=== PATIENT | female | born 1970 | race Caucasian/White ===

== ENCOUNTER 2019-04-07 06:32 | Day surgery (SDC) | payer BC ==
[2019-04-03 13:13] VITALS: BMI 34.5
[2019-04-07] MEDS ORDERED: MIDAZOLAM HCL 2 MG/2 ML SINGLE DOSE VIAL ONE ×2 (07:13→08:16)
[2019-04-07] MEDS ORDERED: SUCCINYLCHOLINE CHLORIDE 200 MG/10 ML SYRINGE ONE (07:13)
[2019-04-07] MEDS ORDERED: PROPOFOL 20 ML ONE ×5 (07:13→08:52)
[2019-04-07] MEDS ORDERED: BENZOIN TINCTURE SWABSTICK TP ONE (07:27)
[2019-04-07] MEDS ORDERED: ROPIVACAINE HCL 0.5% 30ML VIAL ONE (08:16)
[2019-04-07] MEDS ORDERED: ceFAZolin SODIUM 1 GM VIAL ONE (09:09)
[2019-04-07] MEDS ORDERED: ONDANSETRON 4 MG/2 ML VIAL ONE (09:09)
[2019-04-07] MEDS ORDERED: TRANEXAMIC ACID 1000 MG/10 ML VIAL ONE (09:45)
--- NOTE | 2019-04-07 10:58 | PN ---
Progress Note (short form) - Note Progress Note: 49F s/p LEFT shoulder open Quintin procedure, Neer Decompression, & rotator cuff repair POD #0. -Pain control: Vicodin, Duexis. -Incentive spirometry. -No chemical DVT PPx. -LUE sling. -No LEFT shoulder ROM. -Daily LEFT elbow, wrist & hand ROM. -Keep dressing clean & dry. -f/u in [facility] on 04/13/2019; call for appointment; . Vivek Weaver MD (Orthopaedic Surgery).
--- NOTE | 2019-04-07 11:01 | OP ---
Operative Note - Note: Operative Date: 04/07/19 Pre-Operative Diagnosis: Left shoulder impingement syndrome w/rotator cuff derangement Operation: Left shoulder Neer decompression, Quintin procedure, rotator cuff repair Post-Operative Diagnosis: Same as Pre-op Surgeon: Vivek Weaver Nurse Educator: Waqar Weaver Anesthesiologist/[employer] LOADER: Izaiah Otero Anesthesia: Local Estimated Blood Loss (mls): 25 Fluid Volume Replaced (mls): 500 (Crystalloid) Operative Report Dictated: Yes
[2019-04-07] MEDS ORDERED: oxyCODONE HCL 5 MG TABLET PO PRN (11:09)
[2019-04-07] MEDS ORDERED: ONDANSETRON 4 MG/2 ML VIAL IVPUSH PRN (11:09)
[2019-04-07] MEDS ORDERED: LACTATED RINGERS SOLUTION 1,000 ML IV SCH (11:15)
--- NOTE | 2019-04-07 12:18 | OP ---
Date of Operation: 04/07/2019 Surgeon: Vivek Weaver MD Safety Engineer: Waqar Weaver MD Pre-Operative Diagnosis: Left shoulder: 1. Impingement syndrome. 2. Rotator cuff tear. Post-Operative Diagnosis: Left shoulder: 1. Impingement syndrome. 2. Rotator cuff tear. Surgical Procedure: Left shoulder open: 1. Quintin procedure (distal clavicle excision); (17503). 2. Neer decompression (undercutting acromioplasty and coraco-acromial ligament release); (95859). 3. Primary rotator cuff repair; (78481). Findings: Partial-thickness bursal-sided supraspinatus tear. Anesthesia: Regional (interscalene block), sedation. Position: Beach chair. Incision: Oblique. Estimated Blood Loss: 25cc. Intravenous Fluid: 500cc crystalloid. Specimens: Excision arthroplasty left AC joint. Drains: None. Complications: None. Urine output: None. Bacteriology: None. Transfusions: None. Closure: #1 Vicryl. 3-0 Biosyn. Indications: The patient is a 49 year old female who was indicated for an open left shoulder distal claviculectomy (Quintin procedure), coraco-acromial ligament release & Acromioplasty (Neer Decompression), and rotator cuff repair in order to ameliorate the symptoms associated with shoulder impingement syndrome and associated rotator cuff pathology. The patient was identified in the holding area by her armband. A long discussion was held with the patient (in the presence of her family) regarding the risks, benefits and alternatives of the above-named procedure. Risks include but are not limited to: pain, bleeding, infection, damage to surrounding structures (including nerves, blood vessels, skin, ligaments, tendons and bone), reflex sympathetic dystrophy (RSD), wound complications, failure of repair, need for further surgery, blood clots, myocardial infarction , pulmonary embolism, anesthesia complications, compartment syndrome, limb loss , limp, loss of function, cerebrovascular event, and . Benefits as mentioned above. Alternatives include no surgery. All questions were answered. The patient and her family understood and agreed to the procedure. Informed consent was obtained, witnessed and verified. The patients correct operative limb - the left upper extremity - was marked, and the anesthesia team administered an ipsilateral interscalene nerve block. The patient was then taken to the operating room after being seen by the anesthesia and nursing staff. Procedure: The patient was brought into the operating room, placed supine on the OR table and secured with a safety strap. Consent and the operative site was again verified with the patient and nursing and anaesthesia staff. Anaesthesia & antibiotics were then administered without complication. A time-out was done led by , the attending surgeon. The patient was placed in a beach chair position, with all bony prominences well padded. The operative limb was prepped in standard sterile fashion using betadine prep & scrub, wiped off with alcohol, DuraPrep then applied, and then free draped. A time-out was repeated, and the case began. An incision was made in the lines of Lora from the coracoid process to the midbody of the acromion. The deltoid was identified and protected. Subcutaneous dissection was carried with electrocautery down to the level of the distal clavicle. With the distal clavicle exposed, sharp Hohmann retractors were placed around the inferior aspects of the anterior and posterior surfaces of the distal clavicle to elevate it. The acromioclavicular (AC) joint was clearly identified and the AC ligament was incised using a 15-blade. The distal 1cm of the clavicle was marked for excision. An oscillating saw was used to perform a distal clavicular osteotomy. A beveled angular cut was made to avoid leaving a sharp inferior corner to impinge on the rotator cuff below. The excision arthroplasty of the distal clavicle was completed and excised from its capsular attachments using a 15-blade. The soft tissues of the joint were saved for later closure. Throughout the case, hemostasis was assured using either monopolar or bipolar electrocautery. Next, the deltoid was elevated using an [employer] retractor, revealing the coraco-acromial (CA) ligament below. The CA ligament was incised longitudinally using a fresh 15-blade. The CA ligament was then fully released proximally and distally using Metzenbaum scissors. With the CA ligament fully decompressed, the subacromial space became accessible. This space was extremely tight. The AC joint capsule was neatly dissected to expose the distal acromion. A blunt Hohmann retractor was placed on the undersurface of the acromion, levering the humeral head down, and protecting the underlying structures. Next, the oscillating saw was used to osteotomize the undersurface of the acromion with a beveled cut. A straight 1/2" osteotome was used to complete the cut and to free the excised segment of bone. The osteotomized acromioplasty bone fragment was then removed using a rongeur with a 15-blade to release any soft tissue attachments. Next, with finger palpation, an entire finger was delivered into the sub- acromial space and bursal adhesions were released using manual finger debridement. The shoulder was then taken through a full range of motion were a partial thickness, bursal-sided tear of the supraspinatus tendon was visualized. A single #1 vicryl suture was used in simple interrupted fashion to bridge and repair the rotator cuff derangement. The wound was copiously irrigated throughout the case using normal saline solution. Hemostasis was assured and the wound was closed primarily using #1 Vicryl sutures. The skin was closed using a 3-0 Biosyn subcuticular suture. A sterile, compressive dressing was applied. The sponge and needle counts were correct at the end of the case and I, the attending surgeon, was present and scrubbed throughout the case. The patient was then transferred to a hospital stretcher and to the recovery room in stable condition, having tolerated the procedure well. A sling was applied at the end of the case. MD ANA Knowles/[id number] MTDD
[2019-04-07 12:52] VITALS: TEMP 97.7
[2019-04-07 12:56] VITALS: BP 117/68; PULSE 80
== END 2019-04-07 12:40 | disposition home or self-care (01) ==
LOC: FASU 06:32
PROVIDERS: ATTEND Orthopaedic Surgery Adult Reconstructive Orthopaedic Surgery
PROC: 0MN20ZZ Release Left Shoulder Bursa and Ligament, Open Approach (ICD-10-PCS; 2019-04-07)
PROC: 0LQ20ZZ Repair Left Shoulder Tendon, Open Approach (ICD-10-PCS; 2019-04-07)
PROC: 0PBB0ZZ Excision of Left Clavicle, Open Approach (ICD-10-PCS; principal; 2019-04-07 09:32)
DX: M75.122 Complete rotator cuff tear or rupture of left shoulder, not specified as traumatic (principal); M75.42 Impingement syndrome of left shoulder
CPT/HCPCS: 82962; 94760

== ENCOUNTER → 2022-09-23 | Day surgery (SDC) | payer BC, OTHER ==
[2022-09-21 16:55] VITALS: BMI 36.6
[2022-09-23 09:02] VITALS: BP 140/87; PULSE 94; RESP 18; TEMP 98.3
== END | disposition home or self-care (01) ==
LOC: FASU 08:19
PROVIDERS: ATTEND Orthopaedic Surgery Adult Reconstructive Orthopaedic Surgery
PROC: 0SRB0JZ Replacement of Left Hip Joint with Synthetic Substitute, Open Approach (ICD-10-PCS; principal; 2022-09-23)
DX: Z53.09 Procedure and treatment not carried out because of other contraindication (principal); M16.12 Unilateral primary osteoarthritis, left hip
CPT/HCPCS: 82962

== ENCOUNTER 2022-11-25 08:43 | Day surgery (SDC) | payer BC, OTHER ==
[2022-11-20 13:52] VITALS: BMI 36.0
[2022-11-25] MEDS ORDERED: PROPOFOL 100 ML ONE (12:20)
[2022-11-25] MEDS ORDERED: MIDAZOLAM HCL 2 MG/2 ML SINGLE DOSE VIAL ONE ×2 (12:21→15:19)
[2022-11-25] MEDS ORDERED: BUPIVACAINE HCL/PF 0.5% (5MG/ML) 10 ML VIAL ONE (12:34)
[2022-11-25] MEDS ORDERED: ROPIVACAINE HCL 0.5% 30ML VIAL ONE (12:34)
[2022-11-25] MEDS ORDERED: ONDANSETRON 4 MG/2 ML VIAL IVPUSH PRN ×2 (13:31→18:40)
[2022-11-25] MEDS ORDERED: ceFAZolin SODIUM 1 GM VIAL ONE (15:28)
[2022-11-25] MEDS ORDERED: TRANEXAMIC ACID 1000 MG/10 ML VIAL ONE ×2 (15:28→16:18)
[2022-11-25] MEDS ORDERED: DEXAMETHASONE SOD PHOSPHATE 4 MG/1 ML VIAL ONE (15:28)
[2022-11-25] MEDS ORDERED: ONDANSETRON 4 MG/2 ML VIAL ONE (15:28)
[2022-11-25] MEDS ORDERED: VANCOMYCIN 1,000 MG VIAL (RESTRICTED TO ID ONLY) ONE (15:35)
[2022-11-25] MEDS ORDERED: ACETAMINOPHEN 1000 MG/100 ML BAG IVPB PRN (17:36)
[2022-11-25] MEDS ORDERED: ACETAMINOPHEN INJECTION 100 ML IVPB ONE (18:07)
[2022-11-25] MEDS ORDERED: oxyCODONE HCL 5 MG TABLET PO PRN (18:35)
[2022-11-25] MEDS ORDERED: MAGNESIUM HYDROX 2400MG/30ML ORAL SUSPENSION 30 ML CUP PO PRN (18:40)
[2022-11-25] MEDS ORDERED: MAG HYDROX/AL HYDROX/SIMETH 30 ML UNIT-DOSE CUP PO PRN (18:40)
[2022-11-25] MEDS: ACETAMINOPHEN 1000 MG/100 ML BAG IVPB SCH ×3 (18:42→23:49)
[2022-11-25] MEDS ORDERED: LACTATED RINGERS SOLUTION 1,000 ML IV SCH (18:45)
[2022-11-25] MEDS ORDERED: ALBUTEROL SO4 0.083% IH SOL 2.5 MG/3 ML VIAL.NEB. NEB ONE ×2 (18:58→19:06)
[2022-11-25] MEDS: oxyCODONE HCL 5 MG TABLET PO PRN ×2 (20:32→23:35)
[2022-11-25] MEDS: LACTATED RINGERS SOLUTION 1,000 ML IV SCH (20:34)
[2022-11-25] MEDS: CEFAZOLIN SODIUM 2 GM in DEXTROSE 5%-WATER 100 ML IVPB SCH (22:01)
[2022-11-25] MEDS: CELECOXIB 200 MG CAPSULE PO SCH (22:02)
[2022-11-25] MEDS: INSULIN (LEVEMIR) 100 UNITS/ML UNITS SQ SCH (22:02)
[2022-11-25] MEDS: ATORVASTATIN CA 20 MG TABLET (FP) PO SCH (22:02)
[2022-11-25] MEDS: oxyCODONE HCL 10 MG SUSTAINED ACTING TABLET PO SCH (22:03)
[2022-11-25] MEDS: LOSARTAN POTASSIUM 50 MG TABLET PO SCH (22:03)
[2022-11-25] MEDS: SENNOSIDES/DOCUSATE COMBO (SENNA PLUS) TABLET (UD) PO SCH (22:04)
[2022-11-26] MEDS: oxyCODONE HCL 5 MG TABLET PO PRN ×3 (03:22→17:56)
[2022-11-26] MEDS: CEFAZOLIN SODIUM 2 GM in DEXTROSE 5%-WATER 100 ML IVPB SCH ×2 (03:22→09:11)
[2022-11-26] MEDS: ACETAMINOPHEN 1000 MG/100 ML BAG IVPB SCH ×2 (06:28→12:55)
[2022-11-26 08:59] LABS: HEMATOCRIT 31.6 % (32.4-45.2); HEMOGLOBIN 10.5 G/dL (10.7-15.3); MCH 29.1 pg (25.7-33.7); MCHC 33.1 g/dl (32.0-36.0); MEAN PLT VOLUME 10.4 fl (7.5-11.1); RBC 3.59 10^6/uL (3.60-5.2); WHITE BLOOD COUNT 9.9 10^3/uL (4.0-10.8)
[2022-11-26 09:07] LABS: BLOOD UREA NITROGEN 15.4 mg/dl (7-18); CALCIUM 8.8 mg/dl (8.5-10.1); CREATININE 0.6 mg/dl (0.6-1.3); POTASSIUM 4.3 mmol/L (3.5-5.1)
[2022-11-26] MEDS: ESCITALOPRAM OXALATE 20 MG TABLET PO SCH (09:12)
[2022-11-26] MEDS: SENNOSIDES/DOCUSATE COMBO (SENNA PLUS) TABLET (UD) PO SCH ×2 (09:12→21:14)
[2022-11-26] MEDS: PANTOPRAZOLE 40 MG TABLET PO SCH (09:12)
[2022-11-26] MEDS: CELECOXIB 200 MG CAPSULE PO SCH ×2 (09:12→21:14)
[2022-11-26] MEDS: LOSARTAN POTASSIUM 50 MG TABLET PO SCH ×2 (09:13→21:24)
[2022-11-26] MEDS ORDERED: PATIENT'S OWN MEDICATION (NON-FORMULARY) (Dapagliflozin Propanediol 10 MG Tablet) PO SCH (10:45)
[2022-11-26] MEDS: oxyCODONE HCL 10 MG SUSTAINED ACTING TABLET PO SCH ×2 (11:18→21:16)
[2022-11-26] MEDS: sitaGLIPtin PHOSPHATE 50 MG TABLET PO SCH (11:19)
[2022-11-26] MEDS: LACTATED RINGERS SOLUTION 1,000 ML IV SCH (14:29)
[2022-11-26] MEDS: ATORVASTATIN CA 20 MG TABLET (FP) PO SCH (21:14)
[2022-11-26] MEDS: INSULIN (LEVEMIR) 100 UNITS/ML UNITS SQ SCH (21:14)
[2022-11-27] MEDS: sitaGLIPtin PHOSPHATE 50 MG TABLET PO SCH (06:35)
[2022-11-27 07:27] LABS: HEMATOCRIT 28.9 % (32.4-45.2); HEMOGLOBIN 9.4 G/dL (10.7-15.3); MCHC 32.7 g/dl (32.0-36.0); MEAN CELL VOLUME 88.5 fl (80-96); MEAN PLT VOLUME 9.4 fl (7.5-11.1); PLATELET COUNT 221.3 10^3/uL (134-434); RBC 3.26 10^6/uL (3.60-5.2); RDW 14.4 % (11.6-15.6); WHITE BLOOD COUNT 8.7 10^3/uL (4.0-10.8)
[2022-11-27] MEDS ORDERED: ACETAMINOPHEN 1000 MG/100 ML BAG IVPB PRN (08:54)
[2022-11-27] MEDS: SENNOSIDES/DOCUSATE COMBO (SENNA PLUS) TABLET (UD) PO SCH (09:24)
[2022-11-27] MEDS: PANTOPRAZOLE 40 MG TABLET PO SCH (09:24)
[2022-11-27] MEDS: CELECOXIB 200 MG CAPSULE PO SCH (09:24)
[2022-11-27] MEDS: ESCITALOPRAM OXALATE 20 MG TABLET PO SCH (09:24)
[2022-11-27 10:24] VITALS: BP 92/43; PULSE 86; RESP 18; TEMP 99.2
[2022-11-27] MEDS: oxyCODONE HCL 10 MG SUSTAINED ACTING TABLET PO SCH (10:32)
[2022-11-27] MEDS: LOSARTAN POTASSIUM 50 MG TABLET PO SCH (10:32)
== END 2022-11-27 11:47 | disposition home or self-care (01) ==
LOC: FASU 08:43 → FASUSAT 08:43 → FM/S 19:38 → FASUSAT 11-27 11:47
PROVIDERS: ATTEND Orthopaedic Surgery Adult Reconstructive Orthopaedic Surgery
PROC: 0SRB0JA Replacement of Left Hip Joint with Synthetic Substitute, Uncemented, Open Approach (ICD-10-PCS; principal; 2022-11-25 15:57)
DX: M16.12 Unilateral primary osteoarthritis, left hip (principal)
CPT/HCPCS: 27130; C1776; 36415; 73502-TC-LT-FY; 80048; 82010; 82962; 85027; 88305-TC; 88311-TC; 94760; 97010-GP; 97116-GP; 97162-GP